=== PATIENT | female | born 1950 | race Hispanic/Latino ===

== ENCOUNTER 2018-06-16 16:25 | Emergency (ER) | payer BC ==
[2018-06-16] MEDS ORDERED: Lidocaine 2% 20 ml MDV ONE (16:39)
== END 2018-06-16 17:56 | disposition home or self-care (01) ==
LOC: MADERS 16:25
DX: S91.114A Laceration without foreign body of right lesser toe(s) without damage to nail, initial encounter (principal); E11.9 Type 2 diabetes mellitus without complications; E78.5 Hyperlipidemia, unspecified; I10 Essential (primary) hypertension; W26.8XXA Contact with other sharp object(s), not elsewhere classified, initial encounter
CPT/HCPCS: 12001; J2001

== ENCOUNTER 2018-06-28 14:05 | Emergency (ER) | payer MEDICARE, BC | END 2018-06-28 14:45 | disposition home or self-care (01) | LOC: MADERS 14:05 | DX: S91.311D Laceration without foreign body, right foot, subsequent encounter (principal); F31.9 Bipolar disorder, unspecified; K21.9 Gastro-esophageal reflux disease without esophagitis; X58.XXXD Exposure to other specified factors, subsequent encounter ==